=== PATIENT | female | born 1980 | race Caucasian/White ===

== ENCOUNTER 2020-02-20 11:14 | Emergency (ER) | payer OTHER ==
[~2020-02-20] VITALS: Ht 160 cm; Wt 73.9 kg
[2020-02-20 11:22] VITALS: Ht 160 cm; Wt 73.9 kg
[2020-02-20 13:56] VITALS: BP 123/80
== END 2020-02-20 12:14 | disposition home or self-care (01) ==
LOC: ED 11:14
DX: S39.012A Strain of muscle, fascia and tendon of lower back, initial encounter (principal); S29.012A Strain of muscle and tendon of back wall of thorax, initial encounter; Z98.890 Other specified postprocedural states; X58.XXXA Exposure to other specified factors, initial encounter; Y93.89 Activity, other specified; Y92.89 Other specified places as the place of occurrence of the external cause; Y99.8 Other external cause status
CPT/HCPCS: J1885

== ENCOUNTER 2020-02-28 12:38 | Emergency (ER) | payer OTHER, SELFPAY ==
[~2020-02-28] VITALS: Ht 160 cm; Wt 70.3 kg
[2020-02-28 12:52] VITALS: Ht 160 cm; Wt 70.3 kg
[2020-02-28 15:27] VITALS: BP 114/68
== END 2020-02-28 15:27 | disposition home or self-care (01) ==
LOC: ED 12:38
DX: U07.1 COVID-19 (principal); Z98.890 Other specified postprocedural states
CPT/HCPCS: U0003